=== PATIENT | female | born 1980 | race Hispanic/Latino ===

== ENCOUNTER 2017-07-14 13:58 | Emergency (ER) | payer OTHER ==
[2017-07-14 14:07] VITALS: BMI 28.8
[2017-07-14 14:14] VITALS: RESP 18; TEMP 99.7; O2SAT 97
[2017-07-14] MEDS ORDERED: Sodium Chloride 0.9% 1,000 ML IV STA (14:37)
[2017-07-14] MEDS ORDERED: Alum-Mag Hydrox-Simethicone Susp (30 mL) PO STA (14:38)
[2017-07-14] MEDS ORDERED: Atrop/Hyosc/Scopal/PB Elixir (120 ml) PO STA (14:40)
[2017-07-14] MEDS ORDERED: Lidocaine 2% Viscous 100 ml PO STA (14:40)
[2017-07-14 15:26] LABS: BASO # 0.06 K/mm3 (0.0-2.0); BASO % 0.4 % (0.0-3.0); EOS # 0.1 (0.0-0.7); EOS % 0.7 % (1.5-5.0); GRAN # 11.1 (1.4-6.5); GRAN % 71.6 % (50.0-68.0); HEMATOCRIT 40.5 % (36.0-48.0); LYMPH # 3.2 (1.2-3.4); LYMPH % 20.7 % (22.0-35.0); MEAN CELL VOLUME 90.6 fl (80.0-105.0); MEAN CORPUSCULAR HEMOGLOBIN 31.1 pg (25.0-35.0); MEAN CORPUSCULAR HGB CONC 34.3 g/dl (31.0-37.0); MEAN PLATELET VOLUME 10.1 fl (7.0-11.0); MONO % 6.6 % (1.0-6.0); RED CELL DISTRIBUTION WIDTH 12.9 % (11.5-14.5); WHITE BLOOD COUNT 15.5 10^3/ul (4.5-11.0)
[2017-07-14 15:28] LABS: PH,URINE 7.5 (4.7-8.0); URINE BILIRUBIN NEGATIVE (NEGATIVE); URINE BLOOD NEGATIVE (NEGATIVE); URINE GLUCOSE (UA) NEGATIVE (NEGATIVE); URINE KETONE NEGATIVE (NEGATIVE); URINE LEUKOCYTE ESTERASE NEGATIVE Leu/uL (NEGATIVE); URINE PROTEIN NEGATIVE mg/dL (<30 mg/dL); URINE UROBILINOGEN 0.2 E.U./dL (<1 E.U./dL)
[2017-07-14 15:30] LABS: URINE APPEARANCE CLEAR (CLEAR); URINE COLOR YELLOW (YELLOW)
[2017-07-14] MEDS ORDERED: HYDROmorphone 1 mg/ml ISec IVP STA (15:40)
[2017-07-14 15:58] LABS: ALB/GLOB RATIO 1.6 (1.1-1.8); ALKALINE PHOSPHATASE 108 U/L (38-126); ALT/SGPT 50 U/L (7-56); AST/SGOT 27 U/L (14-36); BILIRUBIN,TOTAL 0.5 mg/dL (0.2-1.3); BLOOD UREA NITROGEN 9 mg/dL (7-21); CALCIUM 9.6 mg/dL (8.4-10.5); CARBON DIOXIDE 29 mmol/L (21-33); CHLORIDE 101 mmol/L (95-110); GFR AFRICAN-AMERICAN > 60; GLUCOSE,RANDOM 85 mg/dL (70-110); LIPASE 47 U/L (23-300); POTASSIUM 4.4 mmol/L (3.6-5.0); SODIUM 138 mmol/L (132-148); TOTAL PROTEIN 6.9 g/dL (5.8-8.3)
--- NOTE | 2017-07-14 17:22 | ED PDOC ---
Arrival/HPI - General Chief Complaint: Dizziness/Lightheaded Time Seen by Provider: 07/14/17 14:36 Historian: Patient - History of Present Illness Narrative History of Present Illness (Text): 07/14/17 14:39 A 36 year old female, whose past medical history includes fibromyalgia, presents to the emergency department complaining of body pain. Patient was referred to the ER by PMD. Patient denies of any fever, cough, or any other complaints. PMD: Dr. Thacker Symptom Onset: Gradual Symptom Course: Unchanged Past Medical History - Provider Review Nursing Documentation Reviewed: Yes - Infectious Disease Hx of Infectious Diseases: None - Cardiac Hx NV: Yes Hx Hypertension: Yes - Pulmonary Hx Asthma: Yes - Neurological Hx Dizziness: Yes - Endocrine/Metabolic Other/Comment: borderline. diet control - Psychiatric Hx Substance Use: No - Surgical History Hx Section: Yes (x2) Hx Tubal Ligation: Yes - Anesthesia Hx Anesthesia Reactions: No Hx Malignant Hyperthermia: No Family/Social History - Physician Review Nursing Documentation Reviewed: Yes Family/Social History: No Known Family HX Smoking Status: Current Some Days Smoker Hx Alcohol Use: No Hx Substance Use: No Allergies/Home Meds Allergies/Adverse Reactions: Allergies acetaminophen [From Tylenol-Codeine] Allergy (Verified 07/14/17 14:08) RASH codeine [From Tylenol-Codeine] Allergy (Verified 07/14/17 14:08) RASH Home Medications: Home Meds Medication Instructions Recorded Confirmed Albuterol HFA [Ventolin HFA 90 2 inh INH QD6 07/14/17 07/14/17 mcg/actuation (8 g)] Alprazolam [Xanax] 2 mg PO TID 07/14/17 07/14/17 Clonazepam [Klonopin] 1 mg PO TID 07/14/17 07/14/17 Cyclobenzaprine [Flexeril] 10 mg PO TID 07/14/17 07/14/17 Epinephrine [Epipen] 0.3 ml SQ 07/14/17 Escitalopram [Lexapro] 20 mg PO DAILY 07/14/17 07/14/17 Gabapentin [Neurontin] 400 mg PO QID 07/14/17 07/14/17 Loratadine [Allergy Relief] 10 mg PO DAILY 07/14/17 07/14/17 Mometasone 0.1% [Elocon Cream] 50 mg TOP BID 07/14/17 07/14/17 Omeprazole [Omeprazole] 40 mg PO BID 07/14/17 07/14/17 Sucralfate [Carafate] 1 gr PO BID 07/14/17 07/14/17 Valacyclovir HCl [Valacyclovir] 2 tab PO Q12 07/14/17 07/14/17 cloNIDine [Catapres] 0.1 mg PO TID 07/14/17 07/14/17 methylPREDNISolone [Medrol] 4 mg PO DAILY 07/14/17 07/14/17 traMADol [Ultram] 100 mg PO Q8 07/14/17 07/14/17 Review of Systems - Physician Review All systems were reviewed & negative as marked: Yes - Review of Systems Constitutional: absent: Fevers Respiratory: absent: Cough Musculoskeletal: Other (body pain) Physical Exam Vital Signs Reviewed: Yes Vital Signs Temp Pulse Resp BP Pulse Ox 07/14/17 17:37 89 18 135/86 97 07/14/17 16:11 98 H 18 137/95 H 97 07/14/17 15:25 98 H 18 138/98 H 97 07/14/17 13:58 99.7 F H 107 H 18 140/103 H 97 Temperature: Afebrile Blood Pressure: Normal Pulse: Regular Respiratory Rate: Normal Appearance: Positive for: Well-Appearing, Non-Toxic, Comfortable Pain Distress: None Mental Status: Positive for: Alert and Oriented X 3 Finger Stick Blood Glucose: 84 - Systems Exam Head: Present: Atraumatic, Normocephalic Pupils: Present: PERRL Extroacular Muscles: Present: EOMI Conjunctiva: Present: Normal Mouth: Present: Moist Mucous Membranes Neck: Present: Normal Range of Motion Respiratory/Chest: Present: Clear to Auscultation, Good Air Exchange. No: Respiratory Distress, Accessory Muscle Use Cardiovascular: Present: Regular Rate and Rhythm, Normal S1, S2. No: Murmurs Abdomen: Present: Normal Bowel Sounds. No: Tenderness, Distention, Peritoneal Signs Back: Present: Normal Inspection Upper Extremity: Present: Normal Inspection. No: Cyanosis, Edema Lower Extremity: Present: Normal Inspection. No: Edema Neurological: Present: GCS=15, CN II-XII Intact, Speech Normal Skin: Present: Warm, Dry, Normal Color. No: Rashes Psychiatric: Present: Alert, Oriented x 3, Normal Insight, Normal Concentration Medical Decision Making ED Course and Treatment: 07/14/17 14:44 Impression: 36 year old female with body pain. Physical exam is unremarkable. Plan: -- EKG -- Labs -- Maalox -- Elixir -- Pepcid -- Lidocaine -- Reglan -- IV Fluids -- Urine Culture -- Urinalysis -- Reassess and disposition Progress Notes: 07/14/17 17:43 On re-evaluation, patient feels better and is in no acute distress. I have discussed the results and plan with the patient, who expresses understanding. Patient in agreement with plan to be discharged home. Patient is stable for discharge. Patient was instructed to follow up with physician or return if symptoms worsen or new concerning symptoms arise. - Lab Interpretations Lab Results: 07/14/17 15:15 07/14/17 15:15 Lab Results 07/14/17 15:15: Sodium 138, Potassium 4.4, Chloride 101, Carbon Dioxide 29, Anion Gap 12, BUN 9, Creatinine 0.5, Est GFR ( Amer) > 60, Est GFR (Non- Af Amer) > 60, Random Glucose 85, Calcium 9.6, Total Bilirubin 0.5, AST 27, ALT 50, Alkaline Phosphatase 108, Total Protein 6.9, Albumin 4.3, Globulin 2.7, Albumin/Globulin Ratio 1.6, Lipase 47 07/14/17 15:15: Urine Color Yellow, Urine Appearance Clear, Urine pH 7.5, Ur Specific [place] 1.010, Urine Protein Negative, Urine Glucose (UA) Negative, Urine Ketones Negative, Urine Blood Negative, Urine Nitrate Negative, Urine Bilirubin Negative, Urine Urobilinogen 0.2, Ur Leukocyte Esterase Negative, Urine HCG, Qual Negative 07/14/17 15:15: WBC 15.5 H, RBC 4.47, Hgb 13.9, Hct 40.5, MCV 90.6, MCH 31.1, MCHC 34.3, RDW 12.9, Plt Count 273, MPV 10.1, Gran % 71.6 H, Lymph % (Auto) 20.7 L, [place] % (Auto) 6.6 H, Eos % (Auto) 0.7 L, Baso % (Auto) 0.4, Gran # 11.10 H, Lymph # 3.2, [place] # 1.0 H, Eos # 0.1, Baso # 0.06 I have reviewed the lab results: Yes - Medication Orders Current Medication Orders: Discontinued Medications Al Hydrox/Mg Hydrox/Simethicone (Maalox Plus 30 Ml) 30 ml PO STAT STA Stop: 07/14/17 14:39 Last Admin: 07/14/17 15:36 Dose: 30 ml Belladonna/Phenobarbital ( Elixir) 10 ml PO STAT STA Stop: 07/14/17 14:41 Last Admin: 07/14/17 15:36 Dose: 10 ml Famotidine (Pepcid) 20 mg IVP STAT STA Stop: 07/14/17 14:38 Last Admin: 07/14/17 15:36 Dose: 20 mg Hydromorphone HCl (Dilaudid) 1 mg IVP STAT STA Stop: 07/14/17 15:41 Last Admin: 07/14/17 16:09 Dose: 1 mg Sodium Chloride (Sodium Chloride 0.9%) 1,000 mls @ 1,000 mls/hr IV .Q1H STA Stop: 07/14/17 15:36 Last Admin: 07/14/17 15:15 Dose: 1,000 mls/hr Lidocaine HCl (Lidocaine 2% Viscous) 10 ml MM Q3H PRN PRN Reason: TOPICAL ANESTHESIA Methylprednisolone (Solu-Medrol) 125 mg IVP STAT STA Stop: 07/14/17 15:41 Last Admin: 07/14/17 16:09 Dose: 125 mg Metoclopramide HCl (Reglan) 10 mg IVP STAT STA Stop: 07/14/17 14:39 Last Admin: 07/14/17 15:37 Dose: 10 mg - Scribe Statement The provider has reviewed the documentation as recorded by the Claudia Brunson Provider Scribe Attestation: All medical record entries made by the Claudia were at my direction and personally dictated by me. I have reviewed the chart and agree that the record accurately reflects my personal performance of the history, physical exam, medical decision making, and the department course for this patient. I have also personally directed, reviewed, and agree with the discharge instructions and disposition. Disposition/Present on Arrival - Present on Arrival Any Indicators Present on Arrival: No History of DVT/PE: No History of Uncontrolled Diabetes: No Urinary Catheter: No History of Decub. Ulcer: No History Surgical Site Infection Following: None - Disposition Have Diagnosis and Disposition been Completed?: Yes Diagnosis: Fibromyalgia Disposition: HOME/ ROUTINE Disposition Time: 17:00 Condition: IMPROVED Discharge Instructions (ExitCare): Fibromyalgia (ED) Additional Instructions: Thank you for letting us take care of you today. Your provider was Dr. Naidu. You were treated for body pain. The emergency medical care you received today was directed at your acute symptoms. If you were prescribed any medication, please fill it and take as directed. It may take several days for your symptoms to resolve. Return to the Emergency Department if your symptoms worsen, do not improve, or if you have any other problems. Please contact your doctor or call one of the physicians/clinics you have been referred to that are listed on the Patient Visit Information form that is included in your discharge packet. Bring any paperwork you were given at discharge with you along with any medications you are taking to your follow up visit. Our treatment cannot replace ongoing medical care by a primary care provider (PCP) outside of the emergency department. Thank you for allowing the [facility] team to be part of your care today. Follow up with Dr. Thacker in 2-3 days for re-evaluation and further management. Prescriptions: predniSONE [Prednisone] 40 mg PO DAILY #10 tab Referrals: Bandar Thacker MD [Primary Care Provider] - Follow up with primary Forms: [employer] ([place])
[2017-07-14 17:38] VITALS: BP 135/86; PULSE 89
--- NOTE | 2017-07-15 13:23 | CARD ---
APPROVED REPORT EKG Measurement Heart [id number] <Conclusion> Sinus tachycardia Otherwise normal ECG
== END 2017-07-14 17:59 | disposition home or self-care (01) ==
LOC: ED 13:58
DX: M79.7 Fibromyalgia (principal)
CPT/HCPCS: 80053; 81003; 83690; 84703; 85025; 87086; 93005; 96361; 96374; 96375; 99285; J1170; J2765; J2930; J7040